=== PATIENT | female | born 1995 | race Two or more races ===

== ENCOUNTER 2022-10-07 08:57 | Emergency (ER) | payer SELFPAY ==
[~2022-10-07] VITALS: Ht 165.1 cm; Wt 97.5 kg
--- NOTE | 2022-10-07 09:02 | NUR ---
PT CHONG FROM OUTSIDE AN APARTMENT COMPLEX, PT'S FRIEND CALLED 911. WAS V/O NAUSEA AND VOMITING S/P DRINKING ALCOHOL LAST NIGHT. PT HAD 1 EPISODE VOMITING BATCH WEIGHER. PLACED ON MONITOR. STABLE VITALS. AWAITING MD BORGES.
--- NOTE | 2022-10-07 09:10 | NUR ---
DR DEL CID AT BEDSIDE FOR EVAL.
--- NOTE | 2022-10-07 12:35 | NUR ---
PT SLEEPING, EASILY AROUSABLE. ON MONITOR. VSS. WILL CONTINUE TO MONITOR.
--- NOTE | 2022-10-07 14:34 | NUR ---
PT IS AMBULATORY W/ STEADY GAIT. WAS PROVIDED W/ MEAL TRAY. DISCHARGE HOME IN STABLE CONDITION.
[2022-10-07 14:39] VITALS: BP 132/65
== END 2022-10-07 14:40 | disposition home or self-care (01) ==
LOC: EDBD 09:01 → ER 09:01
DX: F10.10 Alcohol abuse, uncomplicated (principal); Y90.9 Presence of alcohol in blood, level not specified